=== PATIENT | female | born 1975 | race Caucasian/White ===

== ENCOUNTER → 2020-11-26 | Day surgery (SDC) | payer OTHER ==
[~2020-11-26] VITALS: Ht 160 cm; Wt 50.8 kg
[~2020-11-26] MED LIST: AMOXICILLIN500 M2 PO; CITRATE OF MAG296 ML PO; ELAVIL50 MG PO; HYDROCODON-ACE1 EAC2 PO; IMITREX50 MG PO; NEURONTIN400 MG PO; PHENERGAN25 M1 PO; PREDNISONE5 MG PO; VALIUM2 MG PO
[2020-11-26 08:13] LABS: HCG (URINE) SCREEN NEGATIVE (NEGATIVE)
[2020-11-26 08:42] LABS: BASOPHIL 0.7 % (0-2); HCT 38.4 % (37.0-47.0); HGB 12.8 g/dl (12.5-16.0); LYMPHOCYTE 18.1 % (15-48); MCH 30.6 pg (25.0-31.0); MCHC 33.3 g/dL (32.0-36.0); MCV 91.9 fL (78.0-100.0); MONOCYTE 5.6 % (0-12); MPV 9.4 fL (6.0-9.5); NRBC 0; PLT 499 K/uL (150-400); RBC 4.18 M/uL (4.20-5.40); WBC 21.3 K/uL (4.0-10.5)
== END | disposition home or self-care (01) ==
LOC: FAS 07:28
PROVIDERS: Oral & Maxillofacial Surgery
DX: K02.9 Dental caries, unspecified (principal); K08.3 Retained dental root; F43.10 Post-traumatic stress disorder, unspecified; F41.9 Anxiety disorder, unspecified; G43.909 Migraine, unspecified, not intractable, without status migrainosus; M54.2 Cervicalgia; M54.9 Dorsalgia, unspecified; G89.29 Other chronic pain; Z79.891 Long term (current) use of opiate analgesic; Z79.899 Other long term (current) drug therapy; Z88.1 Allergy status to other antibiotic agents; Z88.5 Allergy status to narcotic agent; Z91.041 Radiographic dye allergy status
CPT/HCPCS: 36415; 84703; 85025; J1100; J1885; J2250; J2405; J2704; J7120

== ENCOUNTER → 2022-01-06 | Day surgery (SDC) | payer OTHER ==
[~2022-01-06] VITALS: Ht 160 cm; Wt 50.8 kg
[2022-01-06 09:35] LABS: HCG (URINE) SCREEN NEGATIVE (NEGATIVE)
[2022-01-06 10:02] LABS: BASOPHIL 0.4 % (0-2); EOSINOPHIL 1.8 % (0-5); HGB 13.3 g/dl (12.5-16.0); LYMPHOCYTE 15.4 % (15-48); MCH 31.8 pg (25.0-31.0); MCHC 34.1 g/dL (32.0-36.0); MCV 93.3 fL (78.0-100.0); MONOCYTE 4.9 % (0-12); MPV 9.7 fL (6.0-9.5); NRBC 0; PLT 526 K/uL (150-400); RBC 4.18 M/uL (4.20-5.40); RDW 12.7 % (11.5-14.0); WBC 17.1 K/uL (4.0-10.5)
== END | disposition home or self-care (01) ==
LOC: FAS 11-11 11:15
PROVIDERS: Oral & Maxillofacial Surgery
DX: K02.9 Dental caries, unspecified (principal); K04.7 Periapical abscess without sinus; F43.10 Post-traumatic stress disorder, unspecified; D72.829 Elevated white blood cell count, unspecified; F17.200 Nicotine dependence, unspecified, uncomplicated; Z88.2 Allergy status to sulfonamides; Z88.8 Allergy status to other drugs, medicaments and biological substances; Z91.041 Radiographic dye allergy status
CPT/HCPCS: D7140; D7210; 36415; 84703; 85025; J1100; J1170; J1885; J2250; J2405; J2704; J3010; J7120